=== PATIENT | female | born 1995 | race African-American/Black ===

== ENCOUNTER 2018-07-27 00:04 | Emergency (ER) | payer OTHER ==
[~2018-07-27] VITALS: Ht 182.9 cm; Wt 111.0 kg
[2018-07-27] MEDS ORDERED: KETOROLAC 60MG/2ML VIAL IM ONE (03:15)
[2018-07-27 03:39] VITALS: BP 118/72
== END 2018-07-27 03:42 | disposition home or self-care (01) ==
LOC: ER 00:04
DX: N94.6 Dysmenorrhea, unspecified (principal); J06.9 Acute upper respiratory infection, unspecified; R10.30 Lower abdominal pain, unspecified; F12.10 Cannabis abuse, uncomplicated; Z98.890 Other specified postprocedural states
CPT/HCPCS: 96372; 99283; J1885

== ENCOUNTER 2024-11-23 20:07 | Emergency (ER) | payer SELFPAY ==
[~2024-11-23] VITALS: Ht 182.9 cm; Wt 97.1 kg
[2024-11-23 20:35] VITALS: BP 132/82; PULSE 90; RESP 16; TEMP 36.9; O2SAT 100
[2024-11-23] MEDS: HYDROCODONE/ACETAMINOPHEN 5/325MG TABLET PO ONE (23:23)
[2024-11-23] MEDS ORDERED: IBUP-1455 MT (23:30)
[2024-11-23] MEDS ORDERED: ACET-2708 MT (23:30)
[2024-11-23] MEDS ORDERED: AMOX1TAB16 MT (23:30)
== END 2024-11-24 00:47 | disposition home or self-care (01) ==
LOC: ER 20:07
DX: K04.7 Periapical abscess without sinus (principal); K08.89 Other specified disorders of teeth and supporting structures; F12.90 Cannabis use, unspecified, uncomplicated
CPT/HCPCS: 99283